=== PATIENT | female | born 1950 | race Caucasian/White ===

== ENCOUNTER 2019-01-14 08:55 | Day surgery (SDC) | payer MEDICARE, OTHER ==
[~2019-01-14] VITALS: Ht 170.2 cm; Wt 72.6 kg
[~2019-01-14 08:55] MED LIST: LIPITOR40 MG PO; MECLIZINE HCL25 MG PO; TRANSDERM-SCOP1 EACH TD
--- NOTE | 2019-01-14 15:55 | NUR ---
01/14/19 1555 Nel Bolden 1520- PT ARRIVES TO PACU ALERT. PT GRAPPING AT LEFT BREAST REPORTING PAIN TO THE NIPPLE AREA. LOUIS LEIJA CRNA AT THE BEDSIDE WRITING ORDERS FOR PAIN MEDICATION. 1527- PT ASKING FOR WATER. PT PROVIDED WITH SIPS OF ICE WATER. TOLERATING WELL. 1554- PT REPORTS HER PAIN IS MUCH BETTER. RATING HER PAIN A 3/10. PT APPEARS MORE RELAXED AND IS FALLING ASLEEP INTERMITTENLY. RESP EVEN AND UNLABORED.
[2019-01-14] MEDS ORDERED: DILAUDID4 MG PO (16:31)
--- NOTE | 2019-01-14 17:23 | NUR ---
PT REPORTS VERY SLEEPY DENIES NEED FOR PAIN RX AT THIS TIME.
--- NOTE | 2019-01-14 17:43 | NUR ---
C/O NAUSEA ZOFRAN GIVEN. DRESSED AND WANTS TO GO HOME SISTER HERE AND READY TO GO.
--- NOTE | 2019-01-15 09:30 | OR ---
[facility] [place] [facility] [address], [place] [address] Signed DATE OF OPERATION: 01/14/2019 SURGEON: Surjit Khalil MD PREOPERATIVE DIAGNOSIS: 11 mm left breast cancer (upper inner quadrant, 12 o'clock). POSTOPERATIVE DIAGNOSIS: 11 mm left breast cancer (upper inner quadrant, 12 o'clock). PROCEDURES: 1. Injection of methylene blue. 2. Left breast lumpectomy and sentinel lymph node biopsy. ESTIMATED BLOOD LOSS: None. INDICATIONS: Almaz is a 68-year-old female who had her last mammogram in 2011. She has moved to our area and established with a new primary care provider. She ended up with a new mammogram and was found to have an 11 mm nodule at the 12 o'clock position of her left breast. The ultrasound confirmed this lesion with irregular margins and some peripheral vascularity. She underwent a core needle biopsy with ultrasound guidance and was found to have invasive ductal carcinoma of the breast. Her ER and UT receptors are negative. The HER-2/morgan is still pending. She was asked to see me with respect to the above. I had met with Almaz in the office. She was a ict support technicians for many years. She is very familiar with this whole process. Unfortunately, she developed about a 4 or 5 cm hematoma in her breast. That is slowly resolving. I gave her our [employer] brochure on breast and breast biopsies and breast surgery. We discussed needle localization lumpectomy with sentinel lymph node biopsy in detail. She understands the nature of the surgery along with its risks including, but not limited to gas, bloating, crampy abdominal pain, bleeding, perforation, requiring surgery, and need for additional treatments. She had expressed understanding and wished to proceed. PROCEDURE NOTE: Almaz gone over to our x-ray department early this morning. She had wire localization of the lesion in the upper left breast as well as injection of the technetium sulfur colloid. A single sentinel lymph node was visualized in the left axilla. She was then brought over to the operating room. I had met with Almaz in our preop area. Of course, we confirmed all this and marked the left side of her chest appropriately. After that, Electronically Signed By: SURJIT KHALIL MD 01/15/19 0930 PATIENT NAME: ALMAZ DEE OPERATIVE REPORT DATE OF : 52 REPORT #: [id number] PHYSICIAN: SURJIT KHALIL MD PCP: JEET DE PAZ MD REPORT IS CONFIDENTIAL AND NOT TO BE RELEASED WITHOUT AUTHORIZATION [facility] [place] [facility] [address], [place] [address] Signed she was taken into our operating room and placed in the supine position under general endotracheal tube anesthesia. She was given preoperative antibiotics along with subcutaneous heparin. SCDs were utilized. She was then prepped and draped in the usual sterile fashion. I reviewed her mammograms with respect to the needle localization wire. We injected several milliliters of methylene blue around the nipple-areolar complex. Gentle massage was undertaken for 5 minutes. After this, standard transverse incision was made in her left axilla and carried down to the tissue bluntly and with the cautery. We used our Ene counter to help direct us to the typical sentinel lymph node location. It also contained methylene blue and was easily visualized. The lymph node was removed and passed off the field. The count was over 37,000. There was essentially no count left in the axilla. We looked around carefully and found no other lymph nodes with or without methylene blue either by palpation or visualization. We then injected local anesthetic into the operative field and irrigated out the operative field until clear. The wound was closed in layers with interrupted 3-0 Monocryl sutures. The skin edges were reapproximated with a running 6-0 fast absorbing plain gut suture. After this, we made a curvilinear incision around the wire and carried that down around the tissues with the help of the cautery as well as the curved Guy scissors. The wire was left in place and the specimen was appropriately marked with suture. The specimen was sent off to radiology department. The lesion was confirmed inside the specimen. After this, the wound was irrigated and suctioned out until clear. All hemostasis was excellent. Local anesthetic was injected into the wound. We brought the breast tissue back together in layers with multiple interrupted 3-0 Monocryl sutures. The dermis was reapproximated with interrupted 3-0 subcuticular Monocryl sutures. The skin edges were reapproximated with a running 6-0 fast absorbing plain gut suture. Dry gauze and tape were then applied. Melody was awakened from anesthesia, extubated in the OR, and taken to recovery room in stable condition. Surjit Khalil MD ALB/MODL /[id number] cc: MD Dr. Jeet Andres Electronically Signed By: SURJIT KHALIL MD 01/15/19 0930 PATIENT NAME: ALMAZ DEE OPERATIVE REPORT DATE OF : 52 REPORT #: [id number] PHYSICIAN: SURJIT KHALIL MD PCP: JEET DE PAZ MD REPORT IS CONFIDENTIAL AND NOT TO BE RELEASED WITHOUT AUTHORIZATION [address] [address] Signed Copies: SURJIT KHALIL MD ~ Electronically Signed By: SURJIT KHALIL MD 01/15/19 0930 PATIENT NAME: ALMAZ DEE OPERATIVE REPORT DATE OF : 52 REPORT #: [id number] PHYSICIAN: SURJIT KHALIL MD PCP: JEET DE PAZ MD REPORT IS CONFIDENTIAL AND NOT TO BE RELEASED WITHOUT AUTHORIZATION
== END 2019-01-14 17:44 | disposition home or self-care (01) ==
LOC: OPS 08:55 → DS 08:55 → US 10:00 → OPS 10:00 → EDSTATUS 10:00 → OPS 17:44
PROVIDERS: Colon & Rectal Surgery
PROC: 0HBU0ZZ Excision of Left Breast, Open Approach (ICD-10-PCS; principal; 2019-01-14 12:30)
PROC: 07B60ZX Excision of Left Axillary Lymphatic, Open Approach, Diagnostic (ICD-10-PCS; 2019-01-14 12:30)
DX: C50.212 Malignant neoplasm of upper-inner quadrant of left female breast (principal); F17.210 Nicotine dependence, cigarettes, uncomplicated; Z88.2 Allergy status to sulfonamides; Z88.5 Allergy status to narcotic agent; Z88.8 Allergy status to other drugs, medicaments and biological substances; Z88.1 Allergy status to other antibiotic agents; Z79.899 Other long term (current) drug therapy
CPT/HCPCS: 00404; 19285; 76970; 77065; 78195; 88307; 88342; A9541; J0330; J0690; J1170; J1644; J1885; J2250; J2405; J2704; J3010; J7120; Q9968

== ENCOUNTER 2019-07-07 02:53 | Observation (INO) | payer MEDICARE, OTHER ==
[~2019-07-07] VITALS: Ht 170.2 cm; Wt 70.8 kg
[~2019-07-07 02:53] MED LIST changes: +ATIVAN1 MG PO; +CENTRUM SILVER1 EAC3 PO; +CYCLOPHOSPHAMIDE IV; +DEXAMETHASONE4 MG PO; +DILAUDID4 MG PO; +KRILL OIL500 MG PO; +LOPERAMIDE2 MG PO; +LORADAMED10 MG PO; +NEULASTA6 MG/0.61 INJ; +NICOTINE LOZENGE4 MG BUCCAL; +ONDANSETRON ODT8 MG PO; +SUPER B COMPLE1 EACH PO; +TAXOTERE20 MG/1 ML IV; +TYLENOL EXTRA500 MG PO; +VITAMIN D31000 UNI1 PO; +VITAMIN E400 UNIT PO
--- OUTSIDE RECORDS SUMMARY | 2019-07-07 02:56 | XMS ---
PreManage Notification: SAL DEE Security [employer] Mysql Developer Events No recent Security Events currently on file [facility] There are no care providers on record at this time. [facility] has no Care Guidelines for this patient. Yolande VISIT COUNT (12 MO.) 2 ISAMAR Barrios TOTAL 2 NOTE: Visits indicate total known visits. ED/C VISIT TRACKING (12 MO.) 07/07/2019 02:53 [facility] Bowers [place] TYPE: Emergency COMPLAINT: - CHEST PAIN 08/25/2018 18:29 [facility] [place] TYPE: Emergency COMPLAINT: - POSS VERTIGO DIAGNOSES: - Dizziness and giddiness - Allergy status to narcotic agent status - Other peripheral vertigo, right ear - Allergy status to other drugs, medicaments and biological substances status - Pure hypercholesterolemia, unspecified - Nicotine dependence, unspecified, uncomplicated INPATIENT VISIT TRACKING (12 MO.) No inpatient visits to display in this time frame [email or web address]
[2019-07-07] MEDS ORDERED: BIOTIN5 MG PO (03:10)
--- NOTE | 2019-07-07 08:30 | NUR ---
PT TRANSPORTED TO TO MED/SURG FROM ED BY THIS RN. REPORT RECEIVED FROM ED, RN. PT TRANSFERES SELF TO MED/SURG BED. PT REPORTS 2/10 PAIN THAT IS TOLERABLE AT THIS TIME. PT CONTINUES TO REPORT NAUSEA, NO VOMITING NOTED AT THIS TIME. PT DRIFTS QUICKLY OFF TO SLEEP BETWEEN INTERVENTIONS. PT REMAINS ON 2L OF O2 BY CO R/T DESTATING R/T PAIN MEDICATION. BLANCHABLE REDNESS NOTED TO GLUTEAL AREA. PT REPORTS SHE WAS MEANT TO HAVE HER LAST RADIATION TX TODAY, GENERALIZED WEAKNESS NOTED R/T RADIATION. SCD'S IN PLACE. IV FLUIDS INFUSING. NO ADDITIONAL REQUESTS OR COMPLAINTS AT THIS TIME. CALL LIGHT WITHIN REACH
--- NOTE | 2019-07-07 10:01 | NUR ---
THIS RN TO ROOM TO CHECK ON PT. NEW FLUIDS (LR) HUNG, SEE MAR. PT RESTING WITH EYES CLOSED. RR = 16BPM, O2 SATURATION 96% ON 2L O2 BY NC. BED RAILS UP. CALL LIGHT WITHIN REACH.
--- NOTE | 2019-07-07 10:15 | NUR ---
EDUCATIONAL PAMPHELETS ON CHOLECYSITIS PROVIDED AND REVIEWED WITH PT. PT DRIFTS QUICKLY BACK TO SLEEP. NO ADDITIONAL REQUESTS OR COMPLAINTS AT THIS TIME. O2 SATURATION 94% ON 2L O2 BY NC.
--- NOTE | 2019-07-07 10:44 | NUR ---
CANCELED PATIENTS APPOINTMENT THAT WAS SCHEDULED FOR TODAY AT THE [facility] IN [place]. WENT IN TO TELL PATIENT AND SHE WAS ASLEEP. NOTIFIED BRANDIE ANDRES.
--- NOTE | 2019-07-07 11:25 | NUR ---
THIS RN TO ROOM TO CHECK ON PT. PT UP TO COMODE, SCD'S ATTACHED, NO SOCKS IN PLACE. O2 BY NC NOT IN PLACE. PT STATES SHE GOT HER SELF UP TO THE COMODE BECAUSE "IT WAS GET UP OR PEE THE BED." FALL PRECAUTIONS REVIEWED WITH PT. PT DEMONSTRATES UNDERSTANDING OF CALL LIGHT USE. SOCKES PLACED. NEVILLE CARE DONE. FLOOR CLEANED. DEPENDS IN PLACE. 2PA, FWW BACK TO BED. MD TO BEDSIDE TO REVIEW PLAN OF CARE WITH PT. PT WEANED TO ROOM AIR. O2 AT 94% ON ROOM AIR. BED RAILS UP. BED ALARM ON. CALL LIGHT WITHIN REACH. SURGERY EXPECTED LATER TODAY.
--- NOTE | 2019-07-07 11:33 | NUR ---
PT BECOMES NAUSEAED. VOMITS 30ML OF YELLOW/GREEN FLUID. MD CONSULTED. NEW ORDERS PLACED.
--- NOTE | 2019-07-07 12:00 | NUR ---
NOON ASSESSMENT DUE. PT RESTING IN BED WITH EYES CLOSED. AWAKENS TO VOICE AND DRIFTS QUICKLY BACK TO SLEEP. PT REPORTS 5/10 PAIN AND DENIES NEED FOR PAIN MEDICAITON AT THIS TIME. PT STATES NASUEA "IS MUCH BETTER" AND DECLINES ALL NAUSEA MEDICATION. OTHER MEDICATION ORDER GIVEN. NICOTENE PATCH PLACED BEHIND LEFT SHOULDER. PT REMAINS ON ROOM AIR WITH O2 SATURATION OF 93%. BED RAILS UP. BED ALARM ON. CALL LIGHT WITHIN REACH.
--- NOTE | 2019-07-07 12:49 | NUR ---
PATIENT JUST GOT PRE SURGICAL WIPE DOWN. SHE HAS A CLEAN GOWN ON.
--- NOTE | 2019-07-07 14:11 | NUR ---
PT IN BED EDESIS BAG ON ABDOMEN. I INTRO MYSELF AND SHE THANKED ME FOR COMING BY. PT WAITING FOR LEÓN SURGERY LATER TODAY, PT REQUESTED PRAYER.WILL FOLLOW NEEDED
--- NOTE | 2019-07-07 14:13 | NUR ---
THIS RN TO ROOM TO CHECK ON PT. REPAIR ARMATURE WINDER AT BEDSIDE FOR VITALS. PT RESTING WITH EYES CLOSED. PT AWAKENS TO VOICE AND REPORTS NAUEA. SEE MAR FOR MEDICATION GIVEN. PT REPORTS 2/10 PAIN AND DENIES NEED FOR PAIN MEDICAITON. PT DRIFTS QUICKLY BACK TO SLEEP. O2 SATURATION DROPS TO 88% WHEN PT FALLS ASLEEP. 2L O2 BY NC RESTARTED. O2 CLIMBS TO 94% ON 2L. BED RAILS UP. CALL LIGHT WITHIN REACH. BED ALARM ON.
--- NOTE | 2019-07-07 15:17 | NUR ---
KAM, SIGNALS ANALYST ARRIVED TO TAKE PT TO SURGERY. 2PA TRANSFER TO OR STRETCHER. PT REPORTS NAUSEA HAS IMPROVED "A LITTLE." PT REPORTS 2/10 PAIN AT THIS TIME. NO ADDITIONAL REQUESTS OR COMPLAINTS. REPORT GIVEN, QUESTIONS ANSWERED.
--- NOTE | 2019-07-07 15:57 | NUR ---
MED REC COMPLETE
--- NOTE | 2019-07-07 19:00 | NUR ---
07/07/191899 Lu Wallis 1858-PATIENT ARRIVED TO PACU ON 6L MASK SR RR EVEN. 4 LAP SITES TO ABDOMEN STERI STRIPS. STANLEY DRAIN SEROUSANGUINOUS DRAINAGE GAUZE TO SITE FOR SMALL OOZING. PATIENT REACTIVE TO VOICE OPENS EYES VERY DROWSY. DOZES BACK TO SLEEP.
--- NOTE | 2019-07-07 19:15 | HP ---
[facility] [address], [place] [address] Signed ADMISSION DATE: 07/07/2019 REASON FOR ADMISSION: Acute hydropic calculous cholecystitis. HISTORY OF PRESENT ILLNESS: This 69-year-old white woman is a patient of Dr. Mayda Goldman and has been diagnosed in the past year with left-sided breast cancer by Dr. Hai Jennings. Treatment having included lumpectomy, sentinel lymph node biopsy (negative), and chemotherapy due to tumor characteristics. She was to complete her last visit for left-sided radiation therapy under the direction of today. Yesterday, she had epigastric pain and not feeling very well, had some nausea and so forth, and presented to the emergency room, where she was evaluated by Dr. Diego. A CT scan was performed, which showed a hydropic gallbladder with multiple small stones and equivocal biliary ductal dilatation consistent with acute cholecystitis. Of note, her liver enzymes are normal. Alkaline phosphatase 75, bilirubin 0.4. Liver enzymes proper, normal. White count was normal at 6.7, but she has protracted and persistent pain, nausea, and vomiting. She is admitted for further evaluation and care. PAST MEDICAL HISTORY: Includes breast cancer as previously described with treatment as noted as well. She has had bilateral hip replacement and meniscus repairs, bunionectomy in the past, and pancreatic cyst removal. Her breast surgery was undertaken in December of this year. SOCIAL HISTORY: The patient smokes half pack cigarettes daily. She rarely uses alcohol. 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 She lives alone in [place]. She has a sister who is her closest relative locally. REVIEW OF SYSTEMS: She denies any shortness of breath or chest pain. Her pain is primarily in the epigastric area. She has had protracted nausea and some vomiting. She denies any dysphagia. She has had no hematemesis or blood per rectum. PHYSICAL EXAMINATION: GENERAL: A debilitated and chronically ill appearing white woman who is quite uncomfortable in appearance. HEENT: Mucous membranes are somewhat dry. Trachea is midline. Electronically Signed By: AURORA BLAKE MD 07/07/19 1915 PATIENT NAME: SAL DEE HISTORY AND PHYSICAL DATE OF : 52 REPORT #: [id number] PHYSICIAN: AURORA BLAKE MD PCP: NAZIA DE PAZ MD REPORT IS CONFIDENTIAL AND NOT TO BE RELEASED WITHOUT AUTHORIZATION [facility] [address], [place] [address] Signed CHEST: Clear. There was no regional adenopathy. BREASTS: Left breast examined, shows a tangential type incision for lumpectomy in the upper part of the left breast. She has some mild erythema related to radiation therapy, no doubt of the left breast. There is no axillary adenopathy. I did not detect arm edema. ABDOMEN: Not particularly obese. There is tenderness in the right upper abdomen. I detect no mass. Review of her CT scan shows a dilated and hydropic gallbladder with some layering stones. Examination of the pancreas given her prior history of pancreatic cyst excision shows her spleen to be intact. Body of the pancreas is generally normal in appearance and multiple small cysts of the head of the pancreas. Kidneys appear normal as does the liver. There is no sign of intrahepatic ductal dilatation to my review. ASSESSMENT: The patient has acute calculous cholecystitis with hydropic gallbladder and protracted nausea and vomiting and previous findings of pain. Her pain is improved at this time. I discussed with her the pathophysiology of biliary symptoms related to gallstones and hydropic gallbladder. I have recommended cholecystectomy preferred by a laparoscopic approach. We will initiate IV antibiotics, parenteral pain medication, additional fluid resuscitation, DVT prophylaxis and plan for cholecystectomy today if at all possible. The risks of bleeding, infection, bile duct injury, need for open procedure and other unforeseen complications were reviewed in detail. She understands and wished to proceed. For smoking cessation plan, we will initiate nicotine patch. She is already seeing a respiratory therapist initiating smoking cessation plan. Aurora Blake MD JM/MODL /[id number] cc: Mayda Goldman MD Electronically Signed By: AURORA BLAKE MD 07/07/19 1915 PATIENT NAME: SAL DEE HISTORY AND PHYSICAL DATE OF : 52 REPORT #: [id number] PHYSICIAN: AURORA BLAKE MD PCP: NAZIA DE PAZ MD REPORT IS CONFIDENTIAL AND NOT TO BE RELEASED WITHOUT AUTHORIZATION [address] [address] Signed MD Michel Andres MD Copies: MAYDA GOLDMAN MD, ANDREW L MD WENDLER, SHELDON MD ~ Electronically Signed By: AURORA BLAKE MD 07/07/19 1915 PATIENT NAME: SAL DEE HISTORY AND PHYSICAL DATE OF : 52 REPORT #: [id number] PHYSICIAN: AURORA BLAKE MD PCP: NAZIA DE PAZ MD REPORT IS CONFIDENTIAL AND NOT TO BE RELEASED WITHOUT AUTHORIZATION
--- NOTE | 2019-07-07 19:35 | NUR ---
PT RETURNED TO [facility] FLOOR. ASSISTED PT WITH SLIDER BOARD TO TRANSFER FROM [facility] TO BED. PT HAS PAIN WITH COUGHING OR MOVEMENT. DENIES PAIN WHILE LYING IN BED. IV SITE ASSESSED, IV FLUID RESUMED PER ORDER. 2 PERSON ASSIST UP TO BEDSIDE COMMODE AND BACK TO BED. PT UNABLE TO FLEX LEFT HIP DURING TRANSFERS DUE TO PREVIOUS HIP FUSION. STANLEY-DRAIN EMPTIED. PTREQUESTS AND RECIEVED ICE CHIPS. NO OTHER NEEDS AT THIS TIME. CALL LIGHT WITHIN REACH. SISTER IN ROOM. .
--- NOTE | 2019-07-07 20:31 | NUR ---
TOOK REPORT AT 1939 FROM PACU NURSE AND PATIENT ARRIVED BACK FROM SURGERY 1934. NO C/O PAIN AT THIS TIME. CHARGE NURSE GETING PATIENT SETTLED.
--- NOTE | 2019-07-07 21:19 | NUR ---
PT ASLEEP IN BED, RR16.AWAKENS TO VOICE. VS TAKEN, IV PUMP CLEARED, I AND O CHARTED AND CLEARED. PT STATES PAIN IS 1/10. DENIES ANY OTHER NEEDS. CALL LIGHT WITHIN REACH.
--- NOTE | 2019-07-07 22:18 | NUR ---
PATIENT UP TO THE BEDSIDE COMMODE TO VOID. JONI DAIGLE HELPING HER. DRESSING AROUND STANLEY DRAIN REINFORCED, A LITTLE BLOOD ON GOWN AND GOWN CHANGED. 2200 VS DONE. CALL LIGHT IN REACH AND PATIENT DENIES PAIN.
--- NOTE | 2019-07-07 23:25 | NUR ---
PATIENT RESTING QUIETLY IN NO PAIN IN FOWLERS POSITION. GETTING LAST SET OF POST-OP VITALS AT THIS TIME.
--- NOTE | 2019-07-08 01:15 | NUR ---
PATIENT RESTING QUIETLY STILL IN FOWLERS POSITION, EYES CLOSED RESPIRATIONS REGULAR AND EVEN AT 16. CALL LIGHT IN REACH. REMAINS ON 2L/NC.
--- NOTE | 2019-07-08 02:14 | NUR ---
PATIENT ASKED FOR HER STANLEY DRAIN TO BE EMPTIED AND CHECKED ON. 20MLS SEROSANGUINOUS FLUID WAS DRAINED. PATIENT IS STILL PAIN FREE AND ASSESSMENT REMAINS UNCHANGED. CALL LIGHT IN REACH AND PATIENT VOIDING WELL.
--- NOTE | 2019-07-08 05:10 | NUR ---
PATIENT HAS HAD NO PAIN ONCE SHE GOT BACK FROM THE SURGERY, IV IS INFUSING AND WNL, PATIENT UP TO THE BEDSIDE COMMODE MULTILE TIMES TO VOID. SCD'S IN PLACE. SLIGHT AMOUNT OF DRAINAGE FROM SURGICAL SITES AND GOWN HAD TO BE CHANGED ONCE AND STANLEY DRAIN HAD TO BE REINFORCED WITH 2X2 AND TAPE. STANLEY DRAINAGE SLOWLY DECREASING 70MLS, 50MLS, 20MLS IN 4 HOUR INCREMENTS. PATIENT RESTING QUIETLY AT THIS TIME WITH CALL LIGHT IN REACH.
--- NOTE | 2019-07-08 05:55 | NUR ---
PATIENT'S IV INFILTRATED AFTER GETTING UP TO THE COMMODE. BRANDIE VARGAS IS TRYING TO GET A NEW IV STARTED.
--- NOTE | 2019-07-08 06:24 | NUR ---
PT IV SHOWED SIGNS OF INFILTRATION AFTER A TRANSFER TO THE [facility]. PT ASSISTED BACK TO BED. IV IN RIGHT HAND DC'D. CANNULA INTACT. RESTRICTION BAND USED, AREA CLEANED WITH CHLOR-PREP, 20G PLACED WITH 1 ATTEMPT IN RIGHT FOREARM,FLUSHED WELL, WITHOUT PAIN, REDNESS OR SWELLING.SECURED WITH KIT SUPPLIED DEVICE AND SELD ADHESIVE WRAP. IV FLUIDS RESUMED PER ORDER. PT TOLERATED THE PROCEDURE WELL. CALL LIGHT WITHIN REACH.
--- NOTE | 2019-07-08 07:50 | NUR ---
REPORT RECEIVED FROM RN. PATIENT SITTING IN BED WATCHING TV, ALERT AND ORIENTED. PATIENT DENIES N/V, STATES SHE IS "ONLY IN PAIN WHEN I COUGH." DISCUSSED PLAN OF CARE WITH PATIENT. WILL ADVANCE DIET, AMBULATE HALLS, SIT IN CHAIR FOR MEALS, AND CONTROL PAIN. PATIENT HAS LR RUNNING AT 125 MLS. PATIENT DENIES ANY FURTHER NEEDS AT THIS TIME, CALL LIGHT WITHIN REACH.
--- NOTE | 2019-07-08 08:30 | NUR ---
PATIENT AMBULATED TO CHAIR WITH 1 PERSON SBA. LR RUNNING AT 125 MLS. JELLO AND CRACKERS PROVIDED TO SEE HOW PATIENT TOLERATES, PRIOR TO ADVANCING DIET. PILLOW PLACED UNDER LEFT LEG DUE TO LYMPHEDEMA. PATIENT DENIES ANY FURTHER NEEDS AT THIS TIME, CALL LIGHT WITHIN REACH.
--- NOTE | 2019-07-08 09:00 | NUR ---
PATIENT TOLERATED JELLO AND CRACKERS, BREAKFAST ORDER MADE. PATIENT CONTINUES TO SIT IN CHAIR FOR HER MEAL. SHE REPORTS NO PAIN, NAUSEA OR VOMITING. DISCUSSED THE IMPORTANCE OF SITTING UP, USING HER IS, AND DEEP BREATHING. PATIENT IS AGREEABLE TO TREATMENT PLAN. PATIENT AMBULATES BACK TO BED, RESTING COMFORTABLY. DENIES ANY FURTHER NEEDS AT THIS TIME, CALL LIGHT WITHIN REACH.
--- NOTE | 2019-07-08 09:40 | NUR ---
AM MEDICATIONS ADMINISTERED TO PATIENT. SHE STATES THAT "STOPPING SMOKING IS ON MY BUCKET LIST." RT VISITED WITH SMOKING CESSATION PROGRAM AND PATIENT MOTIVATED TO TAKE PACKET HOME AND QUIT. HER BOWEL TONES ARE ACTIVE AND ABDOMINAL DRESSINGS INTACT WITH SCANT SATURATION. STANLEY IN PLACE, CONTINUES TO DRAIN SEROSANGUINOUS FLUID. PATIENT DENIES ANY PAIN OR N/V. PATIENT DENIES ANY FURTHER NEEDS AT THIS TIME, CALL LIGHT WITHIN REACH.
--- NOTE | 2019-07-08 10:40 | NUR ---
PATIENT LAYING IN BED IN HIGH FOWLERS POSITION. STANLEY CONTINUING TO DRAIN SEROSANGUINOUS FLUID. DRESSING CHANGED OVER THE OPERATIVE SITE. LR RUNNING AT 125 MLS. PATIENTS LEFT BREAST IS REDDENED AND WARM TO TOUCH, PATIENT UNDERGOING RADIATION TX. DR. BLAKE INFORMED AND AN ORDER FOR HYDROPHOR PLACED. FAMILY VISITING WITH PATIENT, DENIES ANY FURTHER NEEDS AT THIS TIME. CALL LIGHT WITHIN REACH.
--- NOTE | 2019-07-08 12:00 | NUR ---
PATIENT SITTING UP IN BED WATCHING TV. PATIENT DENIES PAIN, NAUSEA, OR VOMITING. LR RUNNING AT 125 MLS. LUNCH DELIVERED. PATIENT DENIES ANY FURTHER NEEDS AT THIS TIME, CALL LIGHT WITHIN REACH.
--- NOTE | 2019-07-08 13:09 | EKG ---
[facility] [address] [facility] [place], [place] [address] Signed Normal sinus rhythm Normal ECG When compared with ECG of 12-JAN-2019 10:47, T wave inversion now evident in Anterior leads Confirmed by ARMIDA OVALLE DO ([id number]) on 07/08/2019 1:09:31 PM Electronically Signed By: ARMIDA OVALLE DO 07/08/19 1309 PATIENT NAME: SAL DEE Electrocardiogram DATE OF : 52 PHYSICIAN: ARMIDA OVALLE DO REPORT #: [id number] REPORT IS CONFIDENTIAL AND NOT TO BE RELEASED WITHOUT AUTHORIZATION
--- NOTE | 2019-07-08 14:51 | NUR ---
PT OUT AMBULATING HALLS WITH SBA. TOLERATEING WELL.
--- NOTE | 2019-07-08 14:59 | NUR ---
PATIENT REPORTS PAIN 5/10 IN ABDOMINAL INCISION SITE. IV TORADOL ADMINISTERED. PATIENT AMBULATED TWO LAPS IN HALLWAY. LINENS CHANGED, PATIENT GIVEN PARTIAL BED BATH, NEW GOWN. STANLEY CONTINUES DRAINING SEROSANGUINOUS FLUID. PATIENT DENIES ANY FURTHER NEED AT THIS TIME, CALL LIGHT WITHIN REACH.
--- NOTE | 2019-07-08 16:10 | NUR ---
PATIENT WALKED 2 LAPS AROUND MED SURG. NOW IS SITTING UP IN CHAIR.
--- NOTE | 2019-07-08 16:29 | NUR ---
PATIENT SITTING UP IN CHAIR WITH FRIENDS VISITING. IV ABX ADMINISTERED, IV SITE BENIGN. ASSESSMENT AND VITALS COMPLETE. PATIENT STATES "SHE FEELS MUCH BETTER" AFTER THE TORADOL, DENIES PAIN AND NAUSEA. PATIENT DENIES ANY FURTHER NEEDS AT THIS TIME, CALL LIGHT WITHIN REACH.
[2019-07-08] MEDS ORDERED: NICOTINE PATCH1 EAC1 TD (17:55)
[2019-07-08] MEDS ORDERED: HYDROMORPHONE HC2 MG PO (17:56)
[2019-07-08] MEDS ORDERED: IBUPROFEN600 MG PO (17:56)
[2019-07-08] MEDS ORDERED: TYLENOL325 MG PO (17:56)
--- NOTE | 2019-07-09 16:41 | OR ---
[facility] [address], [place] [address] Signed DATE OF OPERATION: 07/07/2019 SURGEON: Aurora Blake MD PREOPERATIVE DIAGNOSES: 1. Acute calculous cholecystitis. 2. Stage I breast carcinoma, status post lumpectomy, sentinel lymph node biopsy, radiation therapy, and chemotherapy. POSTOPERATIVE DIAGNOSIS: Severe acute calculous cholecystitis. PROCEDURE: 1. Laparoscopic cholecystectomy. Prolonged, complicated, difficult. 2. Surgeon-directed fluoroscopy. ANESTHESIA: General endotracheal, Aurora Darden CRNA, and local 20 mL of 0.25% Marcaine with epinephrine. INDICATION: This 69-year-old white woman is admitted by me through the hospital this morning, having presented to the emergency room with severe epigastric and right subcostal pain. She has marked tenderness on examination. A CT scan had been performed as part of her workup, which showed a distended gallbladder with layering gallstones. Of note, the patient has undergone therapy for breast cancer on the left side by Dr. Hai Jennings, Georgia Franklin, and Dr. Gabriele Limon. Though she did not have signs of axillary metastasis, chemotherapy was nevertheless recommended for her, given the particulars of her tumor. Her last radiation treatment was planned for today, but of course she missed that related to the development of her acute cholecystitis. She has been given intravenous antibiotics, parenteral pain medication, fluid resuscitation and so forth and is now to undergo cholecystectomy preferred by a laparoscopic approach. The risks of bleeding, infection, bile duct injury, need for open procedure and other unforeseen complications have been reviewed with her. She understands and wished to proceed. FINDINGS: The gallbladder was markedly inflamed. There were dense omental adhesions to its Electronically Signed By: AURORA BLAKE MD 07/09/19 1641 PATIENT NAME: SAL DEE OPERATIVE REPORT DATE OF : 52 REPORT #: [id number] PHYSICIAN: AURORA BLAKE MD PCP: JEET DE PAZ MD REPORT IS CONFIDENTIAL AND NOT TO BE RELEASED WITHOUT AUTHORIZATION [facility] [address], [place] [address] Signed undersurface. It was very thickened and distended requiring decompression. The liver itself was normal. With meticulous care, the cystic duct was identified and cholangiography performed showing normal cholangiogram. There was a stone in the cystic duct, which was extracted. The operation was prolonged, complicated, and difficult lasting 4 times longer than usual. DESCRIPTION OF PROCEDURE: The patient was brought to the operating room, given a general endotracheal anesthetic and sequential compression device stockings were already in place and heparin subcutaneously administered. She received preoperative antibiotic Ancef. After satisfactory anesthesia, the abdomen was prepared with a chlorhexidine solution and draped sterilely. An infraumbilical incision was made and using an open Conner cannula technique, pneumoperitoneum achieved to a level of 14 mm mmHg. Intraabdominal inspection showed no sign of ascites or carcinomatosis. Notable indeed, however, was the gallbladder, which was quite markedly distended, very inflamed and densely adherent to omentum obscuring most of its view. Three additional trocars were placed in usual configuration in the subxiphoid, right midclavicular, and right anterior axillary line. Using blunt dissection, omental adhesions were taken off the gallbladder at least jail down. The gallbladder was so distended, it could not be grasped and on that basis, was decompressed with a laparoscopic trocar device. This allowed the gallbladder to be elevated cephalad. Additional adhesions in the infundibulum and gallbladder were freed with blunt dissection, infundibulum grasped. Using electrocautery, the very thickened and inflamed peritoneum over the lower aspect of the gallbladder was dissected free ultimately identifying well the cystic duct. A clip was applied across gallbladder cystic duct junction and transverse choledochotomy made in the cystic duct. Retrograde milking of the cystic duct showed egress of a small black stone out of the cystic duct. At that point, bile was able to flow from the cystic duct. Using an Loco type cholangiocatheter, intraoperative cholangiography was undertaken with surgeon-directed fluoroscopy. Free flow of contrast was noted in the biliary tree with prompt emptying into the duodenum. There was no sign of filling defect, biliary anomalies, or other problem. The cystic duct was triply clipped and divided the gallbladder dissected free in a retrograde fashion. Dissection was difficult on the basis of the dense and intense inflammatory change. Clips were applied to cystic arterial branches as necessary. Ultimately, the gallbladder was freed from the liver, placed in an endobag and extracted through the infraumbilical port site. The subhepatic space was irrigated and oozing of the liver bed was secured with electrocautery. Not mentioned previously was oozing of blood from the epigastric port site, which required changing of it to a balloon type catheter to staunch any kind of blood flow. The right lateral 5 mm port site had some oozing of blood, which required additional electrocautery as well. A small amount of Monserrat was applied to the subhepatic space to additionally provide for hemostasis. Through a right subcostal 5 mm trocar site, a 7 mm flat Daniel drain was insinuated beneath the subhepatic space. Electronically Signed By: AURORA BLAKE MD 07/09/19 4852 PATIENT NAME: SAL DEE OPERATIVE REPORT DATE OF : 52 REPORT #: [id number] PHYSICIAN: AURORA BLAKE MD PCP: JEET DE PAZ MD REPORT IS CONFIDENTIAL AND NOT TO BE RELEASED WITHOUT AUTHORIZATION [facility] [address] [place], [place] [address] Signed The drain was secured to the skin with nylon suture. The epigastric port was removed after taking down the balloon and it still showed some oozing of fresh blood and on that basis, a Sinan-Jerica device with a 0-Vicryl tie was used to secure the fascia coincidentally stopping all blood flow from the wound. Wounds were copiously irrigated. The midline fascia in the infraumbilical areas were reapproximated with interrupted 0 Vicryl suture with additional 0-PDS suture. The skin was closed with interrupted 3-0 Vicryl. Steri-Strips were applied. A drain was applied to bulb suction showing only serosanguineous fluid. No sign of bile leak. She was ultimately extubated and transferred to recovery in good condition having suffered no complications. Sponge, needle, and instrument counts reported as correct x3. Blood loss was more than usual between 25 and 50 mL in aggregate. Sponge, needle, and instrument counts reported as correct x3. The operation was prolonged, complicated, and difficult lasting four times longer than usual. MD CARLY Tagn/NEEL /[id number] cc: Jeet Brady MD Copies: JAYRO BRADY MD ~ Electronically Signed By: AURORA BLAKE MD 07/09/19 1641 PATIENT NAME: SAL DEE OPERATIVE REPORT DATE OF : 52 REPORT #: [id number] PHYSICIAN: AURORA BLAKE MD PCP: JEET DE PAZ MD REPORT IS CONFIDENTIAL AND NOT TO BE RELEASED WITHOUT AUTHORIZATION
--- NOTE | 2019-07-11 16:44 | PATH ---
[facility] [address] [place] [place], [place] [address] Signed SPECIMEN(S): A GALLBLADDER AND STONES SPECIMEN SOURCE: A. GALLBLADDER AND STONES CLINICAL HISTORY: Acute cholecystitis. FINAL PATHOLOGIC DIAGNOSIS: Gallbladder, cholecystectomy: - Gangrenous cholecystitis. - Cholelithiasis. - No dysplasia or malignancy identified. - One benign reactive lymph node. NAL:cml:C2NR MICROSCOPIC EXAMINATION: Histologic sections of all submitted blocks are examined by light microscopy. These findings, together with the gross examination, support the pathologic diagnosis. GROSS DESCRIPTION: The specimen, labeled "CF, gallbladder and stones," is received in formalin and consists of Specimen: Previously opened gallbladder. Dimensions: 7.4 x 3.3 x 3.3 cm. Serosa: Violaceous and smooth. Cystic Duct: Unobstructed. Calculi: Includes a 2.4 x 2.0 x 0.4 cm aggregate of black multifaceted stones. Mucosa: Brown-velvety with areas of green discoloration. Wall thickness: 0.3-0.6 cm. Lymph node: Includes a single 0.8 cm desai pericystic lymph node Additional: None. Material Control Manager sections are submitted in cassette (A1). AM (under the direct supervision of a pathologist) The Gross Description was prepared using a voice recognition system. The report was reviewed for accuracy; however, sound-alike word errors, addition and/or deletions may occur. If there is any question about this report, please contact Client Services. PERFORMING LABORATORY: PATIENT NAME: LEILASAL PATHOLOGY DATE OF : 52 REPORT #: [id number] PHYSICIAN: CAPO CARTER PCP: NAZIA DE PAZ MD REPORT IS CONFIDENTIAL AND NOT TO BE RELEASED WITHOUT AUTHORIZATION [facility] [address] [place], [place] [address] Signed The technical component was performed by [facility], [address] [place] [address] (Stockroom Attendant: Thu Ruth MD; CLIA# [id number]). Professional interpretation was performed by [facility], Count includes the [facility], [address] [place] [id number] (CLIA# [id number]). Diagnostician: Danielle Henderson MD Pathologist Electronically Signed 07/11/2019 Copies: ~ PATIENT NAME: SAL DEE PATHOLOGY DATE OF : 52 REPORT #: [id number] PHYSICIAN: CAPO CARTER PCP: NAZIA DE PAZ MD REPORT IS CONFIDENTIAL AND NOT TO BE RELEASED WITHOUT AUTHORIZATION
== END 2019-07-08 18:55 | disposition home or self-care (01) ==
LOC: ED 02:53 → MS 02:54
PROVIDERS: ADMIT Surgery
PROC: BF101ZZ Fluoroscopy of Bile Ducts using Low Osmolar Contrast (ICD-10-PCS; 2019-07-07)
PROC: 0FT44ZZ Resection of Gallbladder, Percutaneous Endoscopic Approach (ICD-10-PCS; principal; 2019-07-07 14:00)
DX: K80.00 Calculus of gallbladder with acute cholecystitis without obstruction (principal); K82.1 Hydrops of gallbladder; C50.912 Malignant neoplasm of unspecified site of left female breast; R42 Dizziness and giddiness; E78.00 Pure hypercholesterolemia, unspecified; F17.210 Nicotine dependence, cigarettes, uncomplicated; K82.A1 Gangrene of gallbladder in cholecystitis; K21.9 Gastro-esophageal reflux disease without esophagitis; G89.29 Other chronic pain; Z79.899 Other long term (current) drug therapy
CPT/HCPCS: 00790; 71045; 74177; 74300; 80053; 83690; 83735; 84484; 85025; 93005; 93010; 96361; 96372; 96375; 96376; 99285-25; 99406; C9113; G0378; J0131; J0330; J0690; J1100; J1170; J1644; J1720; J1885; J2250; J2405; J2550; J2704; J2765; J3010; J7030; J7120; Q9967

== ENCOUNTER 2019-09-13 07:48 | Day surgery (SDC) | payer MEDICARE, OTHER ==
[~2019-09-13] VITALS: Ht 170.2 cm; Wt 70.3 kg
[~2019-09-13 07:48] MED LIST changes: +BIOTIN5 MG PO; +HYDROMORPHONE HC2 MG PO; +IBUPROFEN600 MG PO; +NICOTINE PATCH1 EAC1 TD; +TYLENOL325 MG PO
--- NOTE | 2019-09-13 10:24 | NUR ---
09/13/19 [address] Galvin 0946 PATIENT ARRIVES TO PACU SLEEPING, AWAKENS WITH VERBAL STIMULI, THEN BACK TO SLEEP. RESP EVEN AND UNLABORED, NC AT 2 LITERS. NEEDS FREQUENT REMINDERS TO TAKE DEEP BREATHS AND COUGH. 1015 PATIENT SLEEPING, AWAKENS WITH VERBAL STIMULI, ABLE TO STAY AWAKE AND HOLD CONVERSATION. DRINKING SIPS OF WATER.
--- NOTE | 2019-09-14 05:39 | OR ---
[facility] [address] [place], [place] [address] Signed DATE OF OPERATION: 09/13/2019 SURGEON: Surjit Khalil MD PREOPERATIVE DIAGNOSES: 1. Personal history of colonic polyps in 2003. 2. Unremarkable colonoscopy in 2008. 3. Mother with colon cancer, age 53. 4. Maternal aunt of colon cancer, age 42. POSTOPERATIVE DIAGNOSES: 1. Ydpvsjy-nj-myzyszyb sigmoid diverticulosis. 2. Minimal internal anal skin tags x2. PROCEDURE: Colonoscopy without biopsy. ESTIMATED BLOOD LOSS: None. INDICATIONS: Almaz is a 69-year-old female, asked to see me for a followup colonoscopy. She has a family history of colon cancer in her mother at age 53. Her maternal aunt of colon cancer at age 42. Almaz had colonic polyps removed back in 2003 while living in [place], [place]. These were adenomatous polyps. She then had a negative colonoscopy in [place], [place] in 2008. She returns now for her followup colonoscopy. She says she has no lower GI complaints. In the office, I gave her a pamphlet on colonoscopy. We looked at that together along with the risks including, but not limited to gas bloating, crampy abdominal pain, bleeding, perforation requiring surgery, and missed diagnosis. We also discussed the need for IV conscious sedation. She had expressed understanding and wished to proceed. PROCEDURE NOTE: Almaz was taken in to our endoscopy suite and placed in the left lateral decubitus position. She was given a total of 7 mg of Versed and 150 mcg of fentanyl. A digital rectal exam was performed and this was unremarkable. No external hemorrhoids. No external skin tags. The adult colonoscope was introduced and advanced under direct visualization into the cecum itself. She required a little extra sedation and mild abdominal compression in order to advance the scope. Her prep was quite good. The scope was slowly withdrawn. We took pictures for photodocumentation. We could easily Electronically Signed By: SURJIT KHALIL MD 09/14/19 0539 PATIENT NAME: ALMAZ DEE OPERATIVE REPORT DATE OF : 52 REPORT #: [id number] PHYSICIAN: SURJIT KHALIL MD PCP: DEBBY NEGRETE MD REPORT IS CONFIDENTIAL AND NOT TO BE RELEASED WITHOUT AUTHORIZATION [address] [address] Signed see the appendiceal orifice and the ileocecal valve. Once in the sigmoid colon, we saw diverticula. They were [id number]-[id number] in size, grpahvu-zf-whxahymx in number, and scattered about. The rectum itself had several polypectomy sites that have since scarred over. Upon retroflexion of scope, she had two tiny internal anal skin tags. After this, the gas was suctioned out, colonoscope removed. Almaz tolerated the procedure quite well. RECOMMENDATIONS: Almaz is welcome to follow up in 5 years for repeat colonoscopy. MD PRINCESS Andres/MAURICIOL /[id number] cc: MD Debby Andres MD Copies: SURJIT KHALIL MD ~ Electronically Signed By: SURJIT KHALIL MD 09/14/19 0539 PATIENT NAME: ALMAZ DEE OPERATIVE REPORT DATE OF : 52 REPORT #: [id number] PHYSICIAN: SURJIT KHALIL MD PCP: EDBBY NEGRETE MD REPORT IS CONFIDENTIAL AND NOT TO BE RELEASED WITHOUT AUTHORIZATION
== END 2019-09-13 11:00 | disposition home or self-care (01) ==
LOC: OPS 07:48 → DS 09:45 → OPS 09:45
PROVIDERS: Colon & Rectal Surgery
PROC: 0DJD8ZZ Inspection of Lower Intestinal Tract, Via Natural or Artificial Opening Endoscopic (ICD-10-PCS; principal; 2019-09-13 09:45)
DX: Z12.11 Encounter for screening for malignant neoplasm of colon (principal); K57.30 Diverticulosis of large intestine without perforation or abscess without bleeding; K64.4 Residual hemorrhoidal skin tags; Z86.010 Personal history of colon polyps; Z80.0 Family history of malignant neoplasm of digestive organs; Z98.890 Other specified postprocedural states; Z88.5 Allergy status to narcotic agent; Z88.1 Allergy status to other antibiotic agents; Z88.2 Allergy status to sulfonamides; Z88.8 Allergy status to other drugs, medicaments and biological substances; Z79.899 Other long term (current) drug therapy
CPT/HCPCS: 99153; G0500; J2250; J3010; J7121